=== PATIENT | female | born 1985 | race Caucasian/White ===

== ENCOUNTER 2016-09-19 01:34 | Emergency (ER) | payer BC ==
[~2016-09-19] VITALS: Ht 152.4 cm; Wt 50.0 kg
[~2016-09-19 01:34] MED LIST: AMOXICILLIN250 MG PO; AZO95 MG PO; B COMPLETE1 EACH PO; BENTYL20 MG PO; CIPRO500 MG PO; CLONAZEPAM0.5 MG PO; DAYQUIL PO; DESYREL100 MG PO; DICYCLOMINE HCL20 MG PO; ESOMEPRAZOLE MA40 MG PO; FLAGYL500 MG PO; GABAPENTIN300 MG PO; HYOSCYAMINE0.375 MG PO; KLONOPIN0.5 M1 PO; LAMICTAL200 MG PO; LAMOTRIGINE200 MG PO; LISINOPRIL10 MG PO; MOTRIN IB200 MG PO; NALTREXONE HCL50 MG PO; NEURONTIN300 MG PO; NEXIUM40 MG PO; ONDANSETRON ODT8 MG PO; PREDNISONE10 MG PO; PRINIVIL10 MG PO; PROMETHAZINE HC25 M1 PO; QUETIAPINE FUM100 MG PO; SUBOXONE 2 M1 TABLET; SUBOXONE 2 MG-1 EACH SL; SUBOXONE 8 M1 TABLET PO; TOPIRAMATE25 MG PO; TORADOL10 MG PO; TYLENOL WITH C1 EACH PO; ULTRAM50 MG PO; VENTOLIN HFA18 GM IH; ZANTAC150 MG PO; ZANTAC75 M1 PO; ZOFRAN4 MG PO
[2016-09-19 01:45] VITALS: BP 92/55
[2016-09-19 02:15] LABS: HEMATOCRIT 33.7 % (36.0-46.0); MCH 28.9 PG (29.0-34.0); MCV 90.1 FL (83-99); MEAN PLAT.VOLUME 9.6 uM^3 (9.5-12.4); PLATELET COUNT 206 K/uL (156-360); RBC DIS.WIDTH-CV 18.7 % (11.8-14.6); RBC DIS.WIDTH-SD 62.1 % (39-53); RED BLOOD COUNT 3.74 M/uL (3.80-5.20); WHITE BLOOD COUNT 4.7 K/uL (4.1-10.2)
[2016-09-19 02:27] LABS: CHLORIDE 113 mEq/L (99-109); POTASSIUM 3.7 mEq/L (3.7-5.4); SODIUM 140 mEq/L (136-147)
[2016-09-19 02:29] LABS: GLUCOSE 88 mg/dL (70-99)
[2016-09-19 02:31] LABS: ANION GAP 8 MEQ/L (2-14); TOTAL BILIRUBIN 0.2 mg/dL (0.0-1.0)
[2016-09-19 02:33] LABS: ALKALINE PHOSPHATASE 44 IU/L (3-129); GFR ESTIMATE (CALCULATED) > 59 mL/min/
[2016-09-19 02:34] LABS: UREA NITROGEN (BUN) 13 mg/dL (9-23)
[2016-09-19 02:44] LABS: QUANTITATIVE HCG < 4.0 MIU/ML
[2016-09-19 04:48] LABS: LIPASE 14 U/L (1.0-51.0)
== END 2016-09-19 04:39 | disposition left against medical advice (07) ==
LOC: EME 01:34
DX: R10.9 Unspecified abdominal pain (principal); Z53.21 Procedure and treatment not carried out due to patient leaving prior to being seen by health care provider
CPT/HCPCS: 80053; 81003; 83690; 84702; 85027

== ENCOUNTER 2016-11-05 11:26 | Emergency (ER) | payer BC ==
[~2016-11-05] VITALS: Ht 152.4 cm; Wt 49.9 kg
[2016-11-05 12:45] LABS: HEMATOCRIT 33.8 % (36.0-46.0); MCH 28.9 PG (29.0-34.0); MCHC 32.8 G/DL (30.0-36.0); MEAN PLAT.VOLUME 9.4 uM^3 (9.5-12.4); PLATELET COUNT 242 K/uL (156-360); RBC DIS.WIDTH-CV 18.7 % (11.8-14.6); RBC DIS.WIDTH-SD 60.8 % (39-53); RED BLOOD COUNT 3.84 M/uL (3.80-5.20); WHITE BLOOD COUNT 9.5 K/uL (4.1-10.2)
[2016-11-05 12:58] LABS: CHLORIDE 109 mEq/L (99-109); POTASSIUM 3.8 mEq/L (3.7-5.4); SODIUM 136 mEq/L (136-147)
[2016-11-05 13:00] LABS: GLUCOSE 79 mg/dL (70-99)
[2016-11-05 13:01] LABS: ANION GAP 10 MEQ/L (2-14)
[2016-11-05 13:02] LABS: TOTAL BILIRUBIN 0.2 mg/dL (0.0-1.0)
[2016-11-05 13:03] LABS: ALKALINE PHOSPHATASE 50 IU/L (3-129)
[2016-11-05 13:04] LABS: GFR ESTIMATE (CALCULATED) > 59 mL/min/
[2016-11-05 13:05] LABS: UREA NITROGEN (BUN) 9 mg/dL (9-23)
[2016-11-05 13:07] LABS: LIPASE 16 U/L (1.0-51.0)
[2016-11-05 13:14] LABS: QUANTITATIVE HCG < 4.0 MIU/ML
[2016-11-05 13:42] LABS: ADD MIUA? NO; BILIRUBIN NEGATIVE; BLOOD NEGATIVE; COLOR YELLOW ((YELLOW)); GLUCOSE (STRIP) NEGATIVE; KETONES NEGATIVE; LEUKOCYTES NEGATIVE; NITRITE NEGATIVE; PROTEIN (STRIP) NEGATIVE; SPECIFIC GRAVITY 1.011 (1.000-1.030); UROBILINOGEN 0.2 MG/DL (0.2-1.0)
[2016-11-05] MEDS ORDERED: ZOFRAN ODT4 MG PO (14:51)
[2016-11-05 15:19] VITALS: BP 107/59
== END 2016-11-05 15:23 | disposition home or self-care (01) ==
LOC: EME 11:26
PROVIDERS: Nurse Practitioner Family
DX: R10.9 Unspecified abdominal pain (principal); D64.9 Anemia, unspecified; R19.7 Diarrhea, unspecified; R11.0 Nausea; E86.0 Dehydration; K21.9 Gastro-esophageal reflux disease without esophagitis; I10 Essential (primary) hypertension; F41.9 Anxiety disorder, unspecified; F32.9 Major depressive disorder, single episode, unspecified; F17.200 Nicotine dependence, unspecified, uncomplicated
CPT/HCPCS: 74022; 80053; 80178; 81003; 83690; 84702; 85027; 87493; 87506; 99281; 99285; J1885; J7030

== ENCOUNTER 2016-11-07 10:37 | Observation (INO) | payer BC ==
[~2016-11-07] VITALS: Ht 152.4 cm; Wt 52.3 kg
[~2016-11-07 10:37] MED LIST changes: +ZOFRAN ODT4 MG PO
[2016-11-07 11:23] LABS: HEMATOCRIT 33.2 % (36.0-46.0); MCH 29.5 PG (29.0-34.0); MCHC 33.7 G/DL (30.0-36.0); MCV 87.4 FL (83-99); MEAN PLAT.VOLUME 9.1 uM^3 (9.5-12.4); PLATELET COUNT 255 K/uL (156-360); RBC DIS.WIDTH-CV 18.3 % (11.8-14.6); RBC DIS.WIDTH-SD 59.3 % (39-53); WHITE BLOOD COUNT 10.7 K/uL (4.1-10.2)
[2016-11-07 11:32] LABS: CHLORIDE 112 mEq/L (99-109); POTASSIUM 3.7 mEq/L (3.7-5.4); SODIUM 138 mEq/L (136-147)
[2016-11-07 11:34] LABS: GLUCOSE 90 mg/dL (70-99)
[2016-11-07 11:35] LABS: ANION GAP 6 MEQ/L (2-14)
[2016-11-07 11:36] LABS: TOTAL BILIRUBIN 0.2 mg/dL (0.0-1.0)
[2016-11-07 11:38] LABS: ALKALINE PHOSPHATASE 48 IU/L (3-129); GFR ESTIMATE (CALCULATED) > 59 mL/min/
[2016-11-07 11:39] LABS: UREA NITROGEN (BUN) 10 mg/dL (9-23)
[2016-11-07 11:41] LABS: LIPASE 29 U/L (1.0-51.0)
[2016-11-07 11:49] LABS: QUANTITATIVE HCG < 4.0 MIU/ML
[2016-11-07 12:40] LABS: BILIRUBIN NEGATIVE; BLOOD NEGATIVE; COLOR YELLOW ((YELLOW)); GLUCOSE (STRIP) NEGATIVE; KETONES NEGATIVE; LEUKOCYTES NEGATIVE; NITRITE NEGATIVE; PROTEIN (STRIP) NEGATIVE; SPECIFIC GRAVITY 1.015 (1.000-1.030); UROBILINOGEN 0.2 MG/DL (0.2-1.0)
[2016-11-07 12:41] LABS: ADD MIUA? NO; UCUL ADDED? NO
[2016-11-07 14:09] LABS: AMPHETAMINE NEGATIVE (500 ng/mL); BARBITURATES NEGATIVE (200 ng/mL); BENZODIAZEPINES NEGATIVE (150 ng/mL); COCAINE NEGATIVE (150 ng/mL); INTERNAL CONTROLS VALID? YES; METHADONE NEGATIVE (200 ng/mL); METHAMPHETAMINE NEGATIVE (500 ng/mL); OPIATES (MORPHINE) NEGATIVE (100 ng/mL); OXYCODONE NEGATIVE (100 ng/mL); PHENCYCLIDINE NEGATIVE (25 ng/mL); PROPOXYPHENE NEGATIVE (300 ng/mL); THC CANNABINOIDS NEGATIVE (50 ng/mL); TRICYCLIC ANTIDEPRESSANTS NEGATIVE (300 ng/mL)
[2016-11-07] MEDS ORDERED: ZOFRAN4 MG PO (18:27)
[2016-11-07] MEDS ORDERED: LITHIUM CARBON450 MG PO (18:28)
[2016-11-07] MEDS ORDERED: TOPAMAX50 MG PO (18:29)
[2016-11-07] MEDS ORDERED: FLONASE16 G1 BOTH NARES (18:30)
[2016-11-07 22:16] VITALS: BP 121/78
[2016-11-08 00:29] VITALS: BP 116/68
[2016-11-08 04:00] VITALS: BP 90/51
[2016-11-08 05:19] LABS: HEMATOCRIT 28.7 % (36.0-46.0); MCH 29.4 PG (29.0-34.0); MCHC 32.4 G/DL (30.0-36.0); MCV 90.8 FL (83-99); MEAN PLAT.VOLUME 9.3 uM^3 (9.5-12.4); PLATELET COUNT 199 K/uL (156-360); RBC DIS.WIDTH-CV 18.9 % (11.8-14.6); RBC DIS.WIDTH-SD 63.2 % (39-53); RED BLOOD COUNT 3.16 M/uL (3.80-5.20); WHITE BLOOD COUNT 8.2 K/uL (4.1-10.2)
[2016-11-08 05:45] LABS: ANION GAP 5 MEQ/L (2-14); CHLORIDE 116 MEQ/L (99-109); GFR ESTIMATE (CALCULATED) > 59 mL/min/; GLUCOSE 92 mg/dL (70-99); POTASSIUM 3.8 MEQ/L (3.7-5.4); SAMPLE HEMOLYSIS CHECK 0; SAMPLE ICTERIC CHECK 0; SAMPLE LIPEMIA CHECK 0; SODIUM 141 MEQ/L (136-147); UREA NITROGEN (BUN) 13 mg/dL (9-23)
[2016-11-08 08:12] VITALS: BP 103/64
[2016-11-08 11:40] VITALS: BP 116/79
== END 2016-11-08 14:41 | disposition home or self-care (01) ==
LOC: EME 10:37 → 5WEST 21:12 → EDOF 21:12 → 5WEST 22:02
PROVIDERS: Hospitalist
DX: T43.595A Adverse effect of other antipsychotics and neuroleptics, initial encounter (principal); F31.9 Bipolar disorder, unspecified; F11.21 Opioid dependence, in remission; K58.9 Irritable bowel syndrome, unspecified; F10.21 Alcohol dependence, in remission; F17.200 Nicotine dependence, unspecified, uncomplicated; Z88.6 Allergy status to analgesic agent; K21.9 Gastro-esophageal reflux disease without esophagitis; I10 Essential (primary) hypertension
CPT/HCPCS: 76856; 80048; 80053; 80178; 81003; 83690; 84443; 84702; 85027; 93005; G0378; J1885; J2405; J7030

== ENCOUNTER 2016-11-30 04:05 | Emergency (ER) | payer BC ==
[~2016-11-30] VITALS: Ht 152.4 cm; Wt 52.0 kg
[~2016-11-30 04:05] MED LIST changes: +FLONASE16 G1 BOTH NARES; +LITHIUM CARBON450 MG PO; +TOPAMAX50 MG PO
[2016-11-30] MEDS ORDERED: BUTALB-ACETAMI1 EAC2 PO (05:13)
[2016-11-30] MEDS ORDERED: AMOXICILLIN500 MG PO (05:13)
[2016-11-30 05:34] VITALS: BP 135/86
== END 2016-11-30 05:35 | disposition home or self-care (01) ==
LOC: EME 04:05
DX: R51 Headache (principal); H66.92 Otitis media, unspecified, left ear; I10 Essential (primary) hypertension; K21.9 Gastro-esophageal reflux disease without esophagitis; D64.9 Anemia, unspecified; F17.200 Nicotine dependence, unspecified, uncomplicated
CPT/HCPCS: 70450; 99281; 99284; J0780

== ENCOUNTER 2016-12-03 11:20 | Emergency (ER) | payer BC ==
[~2016-12-03] VITALS: Ht 152.4 cm; Wt 51.6 kg
[~2016-12-03 11:20] MED LIST changes: +AMOXICILLIN500 MG PO; +BUTALB-ACETAMI1 EAC2 PO
[2016-12-03] MEDS ORDERED: FIORINAL 50-321 EACH PO (14:00)
[2016-12-03 14:10] VITALS: BP 108/66
== END 2016-12-03 14:10 | disposition home or self-care (01) ==
LOC: EME 11:20
DX: R51 Headache (principal); R20.0 Anesthesia of skin; F17.200 Nicotine dependence, unspecified, uncomplicated
CPT/HCPCS: 99281; 99284; J1100; J1200; J1885; J2765; J7030

== ENCOUNTER 2017-01-18 08:50 | Emergency (ER) | payer BC ==
[~2017-01-18] VITALS: Ht 152.4 cm; Wt 51.1 kg
[~2017-01-18 08:50] MED LIST changes: +FIORINAL 50-321 EACH PO
[2017-01-18] MEDS ORDERED: BELSOMRA20 MG PO (09:11)
[2017-01-18] MEDS ORDERED: PRAZOSIN HCL1 MG PO (09:12)
[2017-01-18] MEDS ORDERED: ABILIFY10 MG PO (09:12)
[2017-01-18] MEDS ORDERED: AMITRIPTYLINE H10 MG PO (09:12)
[2017-01-18 09:27] LABS: EOSINOPHIL (%) 0.9 % (0-5); EOSINOPHIL COUNT 0.1 K/uL (0-0.3); HEMATOCRIT 33.3 % (36.0-46.0); IMMATURE GRANULOCYTE (%) 0.2 % (0.0-0.7); INSTRUMENT ABS NEUTROPHIL CT 3.3 K/uL; LYMPHOCYTE COUNT 1.5 K/uL (1.0-2.8); MCH 28.6 PG (29.0-34.0); MCHC 32.7 G/DL (30.0-36.0); MCV 87.4 FL (83-99); MEAN PLAT.VOLUME 9.4 uM^3 (9.5-12.4); MONOCYTE (%) 8.7 % (3-12); MONOCYTE COUNT 0.5 K/uL (0-0.8); NEUTROPHIL (%) 62.1 % (45-76); NEUTROPHIL COUNT 3.3 K/uL (1.8-6.4); PLATELET COUNT 204 K/uL (156-360); RBC DIS.WIDTH-CV 17.3 % (11.8-14.6); RED BLOOD COUNT 3.81 M/uL (3.80-5.20); WHITE BLOOD COUNT 5.3 K/uL (4.1-10.2)
[2017-01-18 09:40] LABS: CHLORIDE 114 mEq/L (99-109); POTASSIUM 3.7 mEq/L (3.7-5.4); SODIUM 140 mEq/L (136-147)
[2017-01-18 09:43] LABS: ANION GAP 9 MEQ/L (2-14)
[2017-01-18 09:46] LABS: GFR ESTIMATE (CALCULATED) > 59 mL/min/
[2017-01-18 09:47] LABS: UREA NITROGEN (BUN) 11 mg/dL (9-23)
[2017-01-18 09:48] LABS: GLUCOSE 137 mg/dL (70-99); TROP-I INTERPRETATION NEGATIVE; TROPONIN-I < 0.01 ng/mL (0.0-0.30)
[2017-01-18 11:14] VITALS: BP 103/63
== END 2017-01-18 11:24 | disposition home or self-care (01) ==
LOC: EME 08:50
PROVIDERS: Emergency Medicine
DX: R07.89 Other chest pain (principal); R51 Headache; R19.7 Diarrhea, unspecified; E86.0 Dehydration; I10 Essential (primary) hypertension; F17.210 Nicotine dependence, cigarettes, uncomplicated; K21.9 Gastro-esophageal reflux disease without esophagitis; Z88.6 Allergy status to analgesic agent
CPT/HCPCS: 70450; 71020; 80048; 84484; 85025; 93005; 99281; 99285; J1885; J2765; J7030

== ENCOUNTER 2017-01-25 11:56 | Emergency (ER) | payer BC ==
[~2017-01-25] VITALS: Ht 152.4 cm; Wt 50.3 kg
[~2017-01-25 11:56] MED LIST changes: +ABILIFY10 MG PO; +AMITRIPTYLINE H10 MG PO; +BELSOMRA20 MG PO; +PRAZOSIN HCL1 MG PO
[2017-01-25 12:53] LABS: EOSINOPHIL (%) 0.5 % (0-5); HEMATOCRIT 33.5 % (36.0-46.0); IMMATURE GRANULOCYTE (%) 0.2 % (0.0-0.7); INSTRUMENT ABS NEUTROPHIL CT 6.2 K/uL; LYMPHOCYTE COUNT 1.8 K/uL (1.0-2.8); MCH 28.1 PG (29.0-34.0); MCHC 32.2 G/DL (30.0-36.0); MEAN PLAT.VOLUME 8.9 uM^3 (9.5-12.4); MONOCYTE (%) 7.7 % (3-12); MONOCYTE COUNT 0.7 K/uL (0-0.8); NEUTROPHIL (%) 70.6 % (45-76); NEUTROPHIL COUNT 6.2 K/uL (1.8-6.4); PLATELET COUNT 205 K/uL (156-360); RBC DIS.WIDTH-CV 17.5 % (11.8-14.6); RBC DIS.WIDTH-SD 55.7 % (39-53); RED BLOOD COUNT 3.85 M/uL (3.80-5.20); WHITE BLOOD COUNT 8.7 K/uL (4.1-10.2)
[2017-01-25 12:55] LABS: ADD MIUA? NO; BILIRUBIN NEGATIVE; BLOOD NEGATIVE; COLOR YELLOW ((YELLOW)); GLUCOSE (STRIP) NEGATIVE; KETONES NEGATIVE; LEUKOCYTES NEGATIVE; NITRITE NEGATIVE; PROTEIN (STRIP) NEGATIVE; SPECIFIC GRAVITY 1.006 (1.000-1.030); UROBILINOGEN 0.2 MG/DL (0.2-1.0)
[2017-01-25 13:04] LABS: AMPHETAMINE NEGATIVE (500 ng/mL); BARBITURATES NEGATIVE (200 ng/mL); BENZODIAZEPINES NEGATIVE (150 ng/mL); COCAINE NEGATIVE (150 ng/mL); INTERNAL CONTROLS VALID? YES; METHADONE NEGATIVE (200 ng/mL); METHAMPHETAMINE NEGATIVE (500 ng/mL); OPIATES (MORPHINE) NEGATIVE (100 ng/mL); OXYCODONE NEGATIVE (100 ng/mL); PHENCYCLIDINE NEGATIVE (25 ng/mL); PROPOXYPHENE NEGATIVE (300 ng/mL); THC CANNABINOIDS NEGATIVE (50 ng/mL); TRICYCLIC ANTIDEPRESSANTS PRESUMPTIVE POSITIVE (300 ng/mL)
[2017-01-25 13:13] LABS: ANION GAP 8 MEQ/L (2-14); CHLORIDE 110 MEQ/L (99-109); POTASSIUM 3.5 MEQ/L (3.7-5.4); SAMPLE HEMOLYSIS CHECK 0; SAMPLE ICTERIC CHECK 0; SAMPLE LIPEMIA CHECK 0; SODIUM 140 MEQ/L (136-147)
[2017-01-25 13:43] LABS: GFR ESTIMATE (CALCULATED) > 59 mL/min/; GLUCOSE 100 mg/dL (70-99); SERUM ETHYL ALCOHOL < 10 mg/dL; UREA NITROGEN (BUN) 10 mg/dL (9-23)
[2017-01-25 13:51] LABS: QUANTITATIVE HCG < 4.0 MIU/ML
[2017-01-25 17:37] VITALS: BP 135/75
== END 2017-01-25 19:17 ==
LOC: EME 11:56
PROVIDERS: Emergency Medicine
DX: F31.4 Bipolar disorder, current episode depressed, severe, without psychotic features (principal); R45.851 Suicidal ideations; F60.3 Borderline personality disorder; F43.10 Post-traumatic stress disorder, unspecified; K21.9 Gastro-esophageal reflux disease without esophagitis; I10 Essential (primary) hypertension; F41.9 Anxiety disorder, unspecified; G43.909 Migraine, unspecified, not intractable, without status migrainosus; F17.200 Nicotine dependence, unspecified, uncomplicated
CPT/HCPCS: 80048; 81003; 84702; 85025; 90837; 99281; 99284; G0480

== ENCOUNTER 2017-07-20 18:16 | Emergency (ER) | payer BC ==
[~2017-07-20] VITALS: Ht 152.4 cm; Wt 55.5 kg
[2017-07-20 19:36] LABS: HEMATOCRIT 40.5 % (36.0-46.0); HEMOGLOBIN 14.2 G/DL (11.9-15.5); MCH 31.8 PG (29.0-34.0); MCHC 35.1 G/DL (30.0-36.0); MCV 90.8 FL (83-99); PLATELET COUNT 242 K/uL (156-360); RBC DIS.WIDTH-CV 13.4 % (11.8-14.6); RED BLOOD COUNT 4.46 M/uL (3.80-5.20); WHITE BLOOD COUNT 7.8 K/uL (4.1-10.2)
[2017-07-20 19:52] LABS: ALBUMIN 5.1 g/dL (3.2-4.8); CHLORIDE 103 mEq/L (99-109); POTASSIUM 3.9 mEq/L (3.7-5.4); SODIUM 140 mEq/L (136-147)
[2017-07-20 19:55] LABS: GLUCOSE 97 mg/dL (70-99); TOTAL PROTEIN 8.5 g/dL (6.4-8.3)
[2017-07-20 19:56] LABS: TOTAL BILIRUBIN 0.4 mg/dL (0.0-1.0)
[2017-07-20 19:57] LABS: SERUM ETHYL ALCOHOL < 10 mg/dL
[2017-07-20 19:58] LABS: ALKALINE PHOSPHATASE 84 IU/L (3-129); CREATININE 0.8 mg/dL (0.6-1.3); GFR ESTIMATE (CALCULATED) > 59 mL/min/
[2017-07-20 19:59] LABS: TROP-I INTERPRETATION NEGATIVE; TROPONIN-I < 0.01 ng/mL (0.0-0.30); UREA NITROGEN (BUN) 5 mg/dL (9-23)
[2017-07-20 20:00] LABS: AST (GOT) 32 IU/L (2-34)
[2017-07-20 20:01] LABS: ALT (GPT) 38 IU/L (3-49)
[2017-07-20 20:02] LABS: LIPASE 7 U/L (1.0-51.0)
[2017-07-20 20:09] LABS: QUANTITATIVE HCG < 4.0 MIU/ML
[2017-07-20 20:14] LABS: APPEARANCE CLEAR ((CLEAR)); BILIRUBIN NEGATIVE; BLOOD NEGATIVE; COLOR COLORLESS ((YELLOW)); GLUCOSE (STRIP) NEGATIVE; KETONES NEGATIVE; LEUKOCYTES NEGATIVE; NITRITE NEGATIVE; PROTEIN (STRIP) NEGATIVE; SPECIFIC GRAVITY 1.005 (1.000-1.030); UROBILINOGEN 0.2 MG/DL (0.2-1.0)
[2017-07-20 20:29] LABS: AMPHETAMINE NEGATIVE (500 ng/mL); BARBITURATES NEGATIVE (200 ng/mL); BENZODIAZEPINES NEGATIVE (150 ng/mL); BUPRENORPHINE NEGATIVE (10 ng/mL); COCAINE NEGATIVE (150 ng/mL); METHADONE NEGATIVE (200 ng/mL); METHAMPHETAMINE NEGATIVE (500 ng/mL); OPIATES (MORPHINE) NEGATIVE (100 ng/mL); OXYCODONE NEGATIVE (100 ng/mL); PHENCYCLIDINE NEGATIVE (25 ng/mL); PROPOXYPHENE NEGATIVE (300 ng/mL); THC CANNABINOIDS NEGATIVE (50 ng/mL); TRICYCLIC ANTIDEPRESSANTS NEGATIVE (300 ng/mL)
[2017-07-20 20:35] LABS: D-DIMER ELISA < 150.00 ng/mLDDU (<230)
[2017-07-20 23:29] LABS: TROP-I INTERPRETATION NEGATIVE; TROPONIN-I < 0.01 ng/mL (0.0-0.30)
[2017-07-20] MEDS ORDERED: LO-DOSE ASPIRIN81 M1 PO (23:47)
[2017-07-20] MEDS ORDERED: ZOFRAN4 MG PO (23:56)
[2017-07-21 00:23] VITALS: BP 122/81
== END 2017-07-21 00:25 | disposition home or self-care (01) ==
LOC: EME 18:16
PROVIDERS: Emergency Medicine
DX: R07.89 Other chest pain (principal); R94.31 Abnormal electrocardiogram [ECG] [EKG]; I10 Essential (primary) hypertension; K21.9 Gastro-esophageal reflux disease without esophagitis; F32.9 Major depressive disorder, single episode, unspecified; F41.9 Anxiety disorder, unspecified; F17.200 Nicotine dependence, unspecified, uncomplicated; Z88.6 Allergy status to analgesic agent
CPT/HCPCS: 71045; 80053; 80175 90; 81003; 83690; 84443; 84484; 84702; 85027; 85379; 93005; 99281; 99285; G0480; J2405; J7030

== ENCOUNTER 2017-11-20 17:51 | Emergency (ER) | payer BC ==
[~2017-11-20] VITALS: Ht 149.9 cm; Wt 55.2 kg
[~2017-11-20 17:51] MED LIST changes: +LO-DOSE ASPIRIN81 M1 PO
[2017-11-20 19:11] LABS: HEMATOCRIT 37.6 % (36.0-46.0); HEMOGLOBIN 12.8 G/DL (11.9-15.5); MCH 29.3 PG (29.0-34.0); PLATELET COUNT 232 K/uL (156-360); RBC DIS.WIDTH-CV 17.2 % (11.8-14.6); RBC DIS.WIDTH-SD 54.4 % (39-53); RED BLOOD COUNT 4.37 M/uL (3.80-5.20); WHITE BLOOD COUNT 9.7 K/uL (4.1-10.2)
[2017-11-20 19:22] LABS: ALBUMIN 4.6 g/dL (3.2-4.8); CHLORIDE 106 mEq/L (99-109); POTASSIUM 4.4 mEq/L (3.7-5.4); SODIUM 139 mEq/L (136-147)
[2017-11-20 19:25] LABS: GLUCOSE 97 mg/dL (70-99); TOTAL PROTEIN 7.5 g/dL (6.4-8.3)
[2017-11-20 19:27] LABS: TOTAL BILIRUBIN 0.2 mg/dL (0.0-1.0)
[2017-11-20 19:28] LABS: ALKALINE PHOSPHATASE 63 IU/L (3-129); CREATININE 0.8 mg/dL (0.6-1.3); GFR ESTIMATE (CALCULATED) > 59 mL/min/
[2017-11-20 19:29] LABS: UREA NITROGEN (BUN) 9 mg/dL (9-23)
[2017-11-20 19:30] LABS: AST (GOT) 20 IU/L (2-34)
[2017-11-20 19:31] LABS: ALT (GPT) 23 IU/L (3-49)
[2017-11-20 19:40] LABS: QUANTITATIVE HCG < 4.0 MIU/ML
[2017-11-20 20:00] LABS: D-DIMER ELISA < 150.00 ng/mLDDU (<230)
[2017-11-20 20:31] LABS: THYROTROPIN (TSH) 3.9 MIU/L (0.4-5.5)
[2017-11-20 21:36] LABS: APPEARANCE CLEAR ((CLEAR)); BILIRUBIN NEGATIVE; BLOOD NEGATIVE; COLOR STRAW ((YELLOW)); GLUCOSE (STRIP) NEGATIVE; KETONES NEGATIVE; LEUKOCYTES NEGATIVE; NITRITE NEGATIVE; PROTEIN (STRIP) NEGATIVE; SPECIFIC GRAVITY 1.008 (1.000-1.030); UCUL ADDED? NO; UROBILINOGEN 0.2 MG/DL (0.2-1.0)
[2017-11-20 21:43] LABS: AMPHETAMINE NEGATIVE (500 ng/mL); BARBITURATES NEGATIVE (200 ng/mL); BENZODIAZEPINES NEGATIVE (150 ng/mL); BUPRENORPHINE NEGATIVE (10 ng/mL); COCAINE NEGATIVE (150 ng/mL); METHADONE NEGATIVE (200 ng/mL); METHAMPHETAMINE NEGATIVE (500 ng/mL); OPIATES (MORPHINE) NEGATIVE (100 ng/mL); OXYCODONE NEGATIVE (100 ng/mL); PHENCYCLIDINE NEGATIVE (25 ng/mL); PROPOXYPHENE NEGATIVE (300 ng/mL); THC CANNABINOIDS NEGATIVE (50 ng/mL); TRICYCLIC ANTIDEPRESSANTS PRESUMPTIVE POSITIVE (300 ng/mL)
[2017-11-20] MEDS ORDERED: ZOFRAN ODT4 MG PO (23:37)
[2017-11-20 23:45] VITALS: BP 136/75
== END 2017-11-20 23:47 | disposition home or self-care (01) ==
LOC: EME 17:51
PROVIDERS: Physician Assistant
DX: R42 Dizziness and giddiness (principal); R51 Headache; I10 Essential (primary) hypertension; K21.9 Gastro-esophageal reflux disease without esophagitis; F31.9 Bipolar disorder, unspecified; F32.9 Major depressive disorder, single episode, unspecified; F41.9 Anxiety disorder, unspecified; F17.200 Nicotine dependence, unspecified, uncomplicated; Z88.6 Allergy status to analgesic agent
CPT/HCPCS: 70450; 80053; 80175 90; 81003; 84443; 84702; 85027; 85379; 93005; 99281; 99285; J1885